=== PATIENT | male | born 1995 | race Caucasian/White ===

== ENCOUNTER 2017-01-25 10:39 | Emergency (ER) | payer OTHER ==
[~2017-01-25] VITALS: Ht 170.2 cm; Wt 81.7 kg
[~2017-01-25 10:39] MED LIST: ONDA4TAB10 SL; [UNRECOGNIZED DRUG - OTHER] PO
[2017-01-25 10:44] VITALS: TEMP 36.8; Ht 170.2 cm; Wt 81.7 kg
--- NOTE | 2017-01-25 11:09 | DIAGNOSTIC IMAGING REPORT ---
RIGHT WRIST W/NAVICULAR MIN 3 VIEWS CLINICAL HISTORY: Right wrist fracture. COMPARISON: None. DISCUSSION: There is a minimally distracted ulnar styloid fracture (2 mm). No radial fractures are visualized. There is no evidence for soft tissue swelling. IMPRESSION: Minimally distracted ulnar styloid fracture. Electronically signed by: Catalino Redman M.D. 01/25/2017 11:07 AM Dictated Date/Time: 01/25/2017 11:04 AM
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
[2017-01-25] MEDS ORDERED: ASCA500 PO (11:20)
[2017-01-25] MEDS ORDERED: VITACAP26 PO (11:20)
[2017-01-25 11:37] VITALS: BP 142/88; PULSE 56; O2SAT 99
== END 2017-01-25 11:30 | disposition home or self-care (01) ==
LOC: C.EDB 10:40 → C.EDD 11:30
DX: S52.611A Displaced fracture of right ulna styloid process, initial encounter for closed fracture (principal); W51.XXXA Accidental striking against or bumped into by another person, initial encounter; Y93.71 Activity, boxing